=== PATIENT | male | born 1975 ===

== ENCOUNTER 2017-10-06 17:36 | Emergency (ER) | payer MEDICAID ==
[2017-10-06 17:40] VITALS: BP 150/95; PULSE 83; RESP 20; TEMP 99.1; O2SAT 99
--- NOTE | 2017-10-06 18:10 | C.PDOC ---
History Of Present Illness 42 year old male presents to the ER complaining of fever, chills, cough, congestion, and body aches which have been present for the past 5 days. Patient states that he was seen by by his PCP 2 days ago. He was prescribed Amoxicillin and cough medicine. However, patient notes that he does not feel better. Time Seen by Provider: 10/06/17 17:58 Chief Complaint (Nursing): Flu-like Symptoms History Per: Patient History/Exam Limitations: no limitations Onset/Duration Of Symptoms: Days Current Symptoms Are (Timing): Still Present Associated Symptoms: Fever, Chills, Cough, Nasal Congestion Severity: Moderate Past Medical History Reviewed: Historical Data, Nursing Documentation, Vital Signs Vital Signs: Last Vital Signs Temp 99.1 F 10/06/17 17:37 Pulse 83 10/06/17 17:37 Resp 20 10/06/17 17:37 BP 150/95 H 10/06/17 17:37 Pulse Ox 99 10/06/17 19:41 - Medical History PMH: No Chronic Diseases Surgical History: No Surg Hx Family History: States: No Known Family Hx - Social History Hx Alcohol Use: No Hx Substance Use: No - Immunization History Hx Tetanus Toxoid Vaccination: No Hx Influenza Vaccination: No Hx Pneumococcal Vaccination: No Review Of Systems Constitutional: Positive for: Fever, Chills, Malaise ENT: Positive for: Nose Congestion Respiratory: Positive for: Cough Gastrointestinal: Negative for: Nausea, Vomiting, Diarrhea Skin: Negative for: Rash Neurological: Negative for: Headache, Dizziness Physical Exam - Physical Exam Appears: Non-toxic, No Acute Distress Skin: Normal Color, Warm Head: Atraumatic, Normacephalic Eye(s): bilateral: Normal Inspection, PERRL, EOMI Ear(s): Bilateral: Normal (no erythema) Nose: Normal Oral Mucosa: Moist Throat: Normal, No Erythema, No Exudate Neck: Supple Chest: Symmetrical Cardiovascular: Rhythm Regular, No Murmur Respiratory: Normal Breath Sounds, No Accessory Muscle Use, No Rales, No Rhonchi , No Wheezing Gastrointestinal/Abdominal: Soft, No Tenderness Back: Normal Inspection, No Vertebral Tenderness, No Paraspinal Tenderness Extremity: Normal ROM, No Deformity, No Swelling Neurological/Psych: Oriented x3, Normal Speech Gait: Steady ED Course And Treatment O2 Sat by Pulse Oximetry: 99 (RA) Pulse Ox Interpretation: Normal Medical Decision Making Medical Decision Making: Patient with multi-symptom complaints. Patient appears well non-toxic and in no acute distress. No clinical signs of pneumonia or dehydration. Based on history , exam and widespread influenza, symptoms are likely influenza. Patient already seen by PCP and on Amoxicillin. Patient is out of time frame for Tamiflu. Patient advised on supportive treatment. Patient stable for discharge and instructed to follow up with PCP or clinic. Disposition Counseled Patient/Family Regarding: Diagnosis, Need For Followup - Disposition Disposition: HOME/ ROUTINE Disposition Time: 18:09 Condition: STABLE Additional Instructions: You have influenza, which is virus that can last 7-10 days. Take Tylenol or Motrin alternating every 4-6 hours for Fever 100.4F or higher. Rest and drink plenty of fluids. Continue with medications given by your doctor for supportive and symptom relief. Instructions: Influenza (ED) Forms: [employer] [facility] (French) - POA Present On Arrival: None - Clinical Impression Clinical Impression: Influenza - PA / SENIOR APPLICATION PROGRAMMER / Resident Statement MD/DO has reviewed & agrees with the documentation as recorded. - Scribe Statement The provider has reviewed the documentation as recorded by the Phoebe Us Provider Attestation All medical record entries made by the Phoebe were at my direction and personally dictated by me. I have reviewed the chart and agree that the record accurately reflects my personal performance of the history, physical exam, medical decision making, and the department course for this patient. I have also personally directed, reviewed, and agree with the discharge instructions and disposition.
== END 2017-10-06 18:22 | disposition home or self-care (01) ==
LOC: C.ER 17:36
DX: J11.1 Influenza due to unidentified influenza virus with other respiratory manifestations (principal)

== ENCOUNTER 2017-12-09 15:01 | Emergency (ER) | payer MEDICAID ==
[2017-12-09 15:29] VITALS: BP 129/84; PULSE 72; RESP 20; TEMP 98.7; O2SAT 96
[2017-12-09] MEDS ORDERED: Tdap Vaccine 0.5 ml Vial (10-64 yrs) IM ONE ×2 (15:45→15:51)
--- NOTE | 2017-12-09 17:05 | C.PDOC ---
History Of Present Illness 42 year old male presents to the emergency department following a laceration he sustained to his left forearm. Patient reports he was cutting cardboard boxes, and bled initially, but his bleeding has since ceased. Patient denies numbness or any other complaints. He states that his tetanus vaccination is not up to date. Chief Complaint (Nursing): Wound Check History Per: Patient Onset/Duration Of Symptoms: Hrs Location Of Injury: Left: Arm (forearm) Quality Of Symptoms: Other (laceration) Past Medical History Reviewed: Historical Data, Nursing Documentation, Vital Signs Vital Signs: Last Vital Signs Temp 98.7 F 12/09/17 15:22 Pulse 72 12/09/17 15:22 Resp 20 12/09/17 15:22 BP 129/84 12/09/17 15:22 Pulse Ox 96 12/09/17 17:09 - Medical History PMH: No Chronic Diseases Denies: Chronic Kidney Disease Surgical History: No Surg Hx Family History: States: No Known Family Hx - Social History Hx Alcohol Use: No Hx Substance Use: No - Immunization History Hx Tetanus Toxoid Vaccination: No Hx Influenza Vaccination: No Hx Pneumococcal Vaccination: No Review Of Systems Except As Marked, All Systems Reviewed And Found Negative. Skin: Positive for: Other (laceration) Neurological: Negative for: Numbness Physical Exam - Physical Exam Cardiovascular: Rhythm Regular Respiratory: Normal Breath Sounds Gastrointestinal/Abdominal: Normal Exam, Soft, No Tenderness Extremity: Normal ROM, Other (1/2 cm laceration on anterior aspect of left forearm) ED Course And Treatment O2 Sat by Pulse Oximetry: 96 (RA) Pulse Ox Interpretation: Normal Medical Decision Making Medical Decision Making: Plan: Adacel 0.5ml IM Progress: Dermabond applied on patient's laceration. Disposition - Disposition Disposition: HOME/ ROUTINE Disposition Time: 15:40 Condition: GOOD Additional Instructions: Thank you for letting us take care of you today. The emergency medical care you received today was directed at your acute symptoms. If you were prescribed any medication, please fill it and take as directed. It may take several days for your symptoms to resolve. Return to the Emergency Department if your symptoms worsen, do not improve, or if you have any other problems. Please contact your doctor or call one of the physicians/clinics you have been referred to that are listed on the Patient Visit Information form that is included in your discharge packet. Bring any paperwork you were given at discharge with you along with any medications you are taking to your follow up visit. Our treatment cannot replace ongoing medical care by a primary care provider (PCP) outside of the emergency department. Thank you for allowing the [facility] team to be part of your care today. Follow up with your primary care doctor in 2-3 days for re-evaluation and further management. Instructions: Laceration Repair With Glue (DC) Forms: [employer] [facility] [employer] (Turkmen) - Clinical Impression Clinical Impression: Forearm laceration - Scribe Statement The provider has reviewed the documentation as recorded by the Scribe (Servando Jamesonvi) All medical record entries made by the Scribe were at my direction and personally dictated by me. I have reviewed the chart and agree that the record accurately reflects my personal performance of the history, physical exam, medical decision making, and the department course for this patient. I have also personally directed, reviewed, and agree with the discharge instructions and disposition.
== END 2017-12-09 16:04 | disposition home or self-care (01) ==
LOC: C.ER 15:01
DX: S51.812A Laceration without foreign body of left forearm, initial encounter (principal); W26.0XXA Contact with knife, initial encounter; Y92.9 Unspecified place or not applicable; Z23 Encounter for immunization